=== PATIENT | male | born 1990 | race Caucasian/White ===

== ENCOUNTER 2017-11-11 21:06 | Emergency (ER) | payer OTHER ==
[~2017-11-11] VITALS: Ht 177.8 cm; Wt 88.0 kg
[~2017-11-11 21:06] MED LIST: IBUP-232 PO; Z.0.NO CURRENT MEDS
[2017-11-11 22:09] VITALS: BP 129/72; PULSE 99; RESP 18; TEMP 98.1; O2SAT 100
[2017-11-12] MEDS ORDERED: methylPREDNISolone SOD SUCC 125 MG/2 ML VIAL IV PUSH ONE (01:30)
[2017-11-12] MEDS ORDERED: FAMOTIDINE 20 MG/2 ML VIAL IV PUSH ONE (01:30)
[2017-11-12] MEDS ORDERED: SODIUM CHLORIDE 0.9% FLUSH 10 ML FLUSH IV FLUSH PRN (01:30)
[2017-11-12] MEDS ORDERED: EPINEPHrine HCL (1:1000) 1 MG/ML VIAL IM ONE (01:30)
[2017-11-12] MEDS ORDERED: diphenhydrAMINE HCL 50 MG/ML VIAL IVP ONE (01:30)
--- NOTE | 2017-11-12 01:56 | PD ---
HPI Chief Complaint: Allergic/Adverse Reaction Time Seen by Provider: 01:12 Travel History International Travel<30 days: No Contact w/Intl Traveler<30days: No Traveled to known affect area: No History of Present Illness HPI 27-year-old white male presents emergency department complaining of allergic reaction. He states that he had noticed a small rash on his arms earlier today while at work. 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. Patient reports progressive worsening throughout the day to include his whole body. He states that he feels swollen in his lips. He feels itchy all over. He denies any difficulty swallowing. No shortness of breath or wheezing. He cannot recall any changes in his environment, changes in his diet, changes in skin care products, changes in soap detergent or any other possible causes of his rash. He denies any history of allergic reactions in the past. He states that he has not been sick recently. PFSH Past Medical History Medical History: Denies Significant Hx Diminished Hearing: No Tetanus Vaccination: < 5 Years Influenza Vaccination: Yes Past Surgical History Tympanostomy Tube: Yes Social History Alcohol Use: No Tobacco Use: Yes (1/2 PPD) Substance Use: No Allergies-Medications (Allergen,Severity, Reaction): Coded Allergies: No Known Allergies (Unverified Adverse Reaction, Unknown, 11/11/17) Reported Meds & Prescriptions Reported Meds & Active Scripts Active Benadryl Allergy (Diphenhydramine HCl) 25 Mg Cap 50 Mg PO Q6HR PRN 5 Days Pepcid (Famotidine) 40 Mg Tab 40 Mg PO BID Deltasone (Prednisone) 20 Mg Tab 40 Mg PO BID 5 Days Motrin (Ibuprofen) 600 Mg Tab 600 Mg PO QID GIVE WITH FOOD Reported No Current Meds (Miscellaneous Medication) Misc Review of Systems General / Constitutional: No: Fever Eyes: No: Visual changes HENT: Positive: Earache (Ear pressure), No: Headaches, Sore Throat, Gingival Bleeding, Dental Difficulties Cardiovascular: No: Chest Pain or Discomfort Respiratory: No: Shortness of Breath, Wheezing Gastrointestinal: No: Nausea, Vomiting, Abdominal Pain Genitourinary: No: Dysuria Musculoskeletal: No: Pain Skin: Positive Rash, Positive Itching, Positive Hives Neurologic: No: Weakness Psychiatric: No: Depression Endocrine: No: Polydipsia Hematologic/Lymphatic: No: Easy Bruising Physical Exam Narrative GENERAL: Well-developed, well-nourished in no apparent distress. Nontoxic appearing. HEAD: Normocephalic, atraumatic. EYES: Pupils equal round and reactive. Extraocular motions intact. No scleral icterus. No injection or drainage. ENT: Nose clear. Throat without erythema, tonsillar hypertrophy or exudate. Uvula midline. Airway patent. Normal phonation. NECK: Trachea midline. Supple, nontender, moves head freely. No central bony tenderness or spasm. CARDIOVASCULAR: Regular rate and rhythm without murmurs, gallops, or rubs. RESPIRATORY: Clear to auscultation. Breath sounds equal bilaterally. No wheezes , rales, or rhonchi. GASTROINTESTINAL: Abdomen soft, non-tender, nondistended. No hepato-splenomegaly , or palpable masses. No guarding. EXTREMITIES: No clubbing, cyanosis, or edema. No joint tenderness. BACK: Nontender without deformity. No flank tenderness. NEUROLOGICAL: Awake, alert and oriented x 3 .Cranial nerves grossly intact. Motor and sensory grossly within normal limits. Normal speech. Skin: Patient has diffuse macular papular rash/hives coalescing into plaques diffusely on the body. These appear to be more intense in the areas of skin contact such as the groin, belt line and upper arms. Data Data Last Documented VS Vital Signs Date Time Temp Pulse Resp B/P (MAP) Pulse Ox O2 Delivery O2 Flow Rate FiO2 11/12/17 02:37 72 16 132/74 (93) 99 11/12/17 01:57 Room Air 11/11/17 22:09 98.1 Orders Orders Ecg Monitoring (11/12/17 01:17) Iv Access Insert/Monitor (11/12/17 01:17) Oximetry (11/12/17 01:17) Diphenhydramine Inj (Benadryl Inj) (11/12/17 01:30) Methylprednisolone So Succ Inj (Solumedr (11/12/17 01:30) Famotidine Inj (Pepcid Inj) (11/12/17 01:30) Sodium Chloride 0.9% Flush (Ns Flush) (11/12/17 01:30) Epinephrine (1:1000) Inj (Adrenalin (1:1 (11/12/17 01:30) Prednisone (Deltasone) (11/12/17 03:00) Diphenhydramine (Benadryl) (11/12/17 03:00) Ed Discharge Order (11/12/17 02:55) [facility] Medical Decision Making Medical Screen Exam Complete: Yes Emergency Medical Condition: Yes Medical Record Reviewed: Yes Differential Diagnosis Differential diagnosis: Angioedema, allergic reaction, contact dermatitis Narrative Course Patient is given epinephrine 0.3 mL IM. This is followed by IV access. Patient is given Benadryl 50 mg IV, Solu-Medrol 125 mg IV,Pepcid 20 mg IV. The patient is reexamined. He has had significant improvement of his rash. The patient is continued to be monitored. The patient is reexamined again at 0302. The patient continues to improve. He has no shortness of breath. He is handling his secretions well. He has had resolution of his facial swelling. The patient is considered medically stable at this time for discharge. This acute allergic reaction Diagnosis Primary Impression: Acute allergic reaction Patient Instructions: General Instructions Departure Forms: Tests/Procedures, Work Release Special Instructions: No work 2 days. Additional Instructions: Rest. Increase fluids. Medications as directed. Perform a diary of all exposures as we have discussed. Follow-up with a primary care doctor in the next 2-3 days for recheck. Return to the ER if any problems or worsening symptoms. Med/Other Pt SpecificInfo: Prescription(s) given Scripts Diphenhydramine HCl (Benadryl Allergy) 25 Mg Cap 50 MG PO Q6HR Y for ALLERGIC REACTION for 5 Days Prov: Winsome Tamayo DO 11/12/17 Famotidine (Pepcid) 40 Mg Tab 40 MG PO BID, #14 TAB 0 Refills Prov: Winsome Tamayo DO 11/12/17 Prednisone (Deltasone) 20 Mg Tab 40 MG PO BID for 5 Days, #20 TAB 0 Refills Prov: Winsome Tamayo DO 11/12/17 Disposition: 01 DISCHARGE HOME Condition: Stable Jesse Youngblood Nov 12, 2017 01:56
[2017-11-12 01:57] VITALS: PULSE 77; RESP 18; O2SAT 100
[2017-11-12 02:37] VITALS: BP 132/74; PULSE 72; RESP 16; O2SAT 99
[2017-11-12] MEDS ORDERED: diphenhydrAMINE HCL 50 MG CAP PO ONE (03:00)
[2017-11-12] MEDS ORDERED: predniSONE 20 MG TAB PO ONE (03:00)
[2017-11-12] MEDS ORDERED: BENA25CA4 PO (03:01)
[2017-11-12] MEDS ORDERED: PRED-503 PO (03:01)
[2017-11-12] MEDS ORDERED: FAMO1TAB73 PO (03:01)
== END 2017-11-12 03:07 | disposition home or self-care (01) ==
LOC: NEPD 21:06
DX: T78.40XA Allergy, unspecified, initial encounter (principal); F17.210 Nicotine dependence, cigarettes, uncomplicated
CPT/HCPCS: 96372; 96374; 96375; 99284; J0171; J1200; J2930; J7512; Q0163